=== PATIENT | female | born 1945 | race Caucasian/White ===

== ENCOUNTER 2018-01-17 13:21 | Outpatient (CLI) | payer MEDICARE | END 2018-01-17 13:22 | disposition home or self-care (01) | LOC: BICMAMMO 13:21 | PROVIDERS: ATTEND Family Medicine | DX: Z12.31 Encounter for screening mammogram for malignant neoplasm of breast (principal) | CPT/HCPCS: 77063; 77067 ==

== ENCOUNTER 2019-02-07 10:01 | Outpatient (CLI) | payer MEDICARE ==
--- NOTE | 2019-02-07 12:21 | BD ---
DEXA BONE DENSITY STUDY: Date: 02/07/19 HISTORY: Postmenopausal. 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 POS: TPC
== END 2019-02-07 10:02 | disposition home or self-care (01) ==
LOC: BICMAMMO 10:01
PROVIDERS: ATTEND Family Medicine
DX: Z13.820 Encounter for screening for osteoporosis (principal); M85.89 Other specified disorders of bone density and structure, multiple sites; Z78.0 Asymptomatic menopausal state
CPT/HCPCS: 77080

== ENCOUNTER 2023-01-05 10:06 | Outpatient (CLI) | payer MEDICARE | END 2023-01-05 10:07 | disposition home or self-care (01) | LOC: BICMRI 10:06 | PROVIDERS: ATTEND Orthopaedic Surgery | DX: M23.306 Other meniscus derangements, unspecified meniscus, right knee (principal); S83.241A Other tear of medial meniscus, current injury, right knee, initial encounter; M22.2X1 Patellofemoral disorders, right knee; M71.21 Synovial cyst of popliteal space [Baker], right knee ==

== ENCOUNTER 2024-07-09 10:30 | Outpatient (CLI) | payer MEDICARE | END 2024-07-09 10:31 | disposition home or self-care (01) | LOC: SCSMRI 10:30 | PROVIDERS: ATTEND Orthopaedic Surgery | DX: M75.111 Incomplete rotator cuff tear or rupture of right shoulder, not specified as traumatic (principal); M19.011 Primary osteoarthritis, right shoulder; M75.101 Unspecified rotator cuff tear or rupture of right shoulder, not specified as traumatic; M25.411 Effusion, right shoulder ==

== ENCOUNTER 2024-08-03 06:52 | Day surgery (SDC) | payer MEDICARE ==
[2024-07-31 09:35] VITALS: BMI 27.9
[2024-08-03] MEDS ORDERED: CEFAZOLIN 2 GM VIAL ONE (07:40)
[2024-08-03] MEDS ORDERED: Vancomycin 1 GM/200 ML (FROZEN) BAG ONE (07:40)
[2024-08-03] MEDS ORDERED: Ropivacaine 0.2% HCl/PF 20 ML ONE (08:11)
[2024-08-03] MEDS ORDERED: Midazolam HCl 2 mg/2 ml Vial ONE (08:11)
[2024-08-03] MEDS ORDERED: fentaNYL 50 mcg/mL 1 mL Vial ONE (08:11)
[2024-08-03] MEDS ORDERED: Ropivacaine 0.5% HCl/PF (150 MG/30 ML VIAL) ONE (08:11)
[2024-08-03] MEDS ORDERED: Phenylephrine 40 MG/NS 250 ML 250 ML ONE (08:27)
[2024-08-03] MEDS ORDERED: Lidocaine 1% PF 5 ML VIAL ONE (08:28)
[2024-08-03] MEDS ORDERED: Ondansetron PF 4 MG/2 ML Vial ONE (08:28)
[2024-08-03] MEDS ORDERED: Dexamethasone 20 MG/5 ML VIAL ONE (08:28)
[2024-08-03] MEDS ORDERED: fentaNYL PF 100 MCG/2 ML SYRINGE ONE (08:28)
[2024-08-03] MEDS ORDERED: PROPOFOL 20 ML ONE (08:28)
[2024-08-03] MEDS ORDERED: Rocuronium Bromide 10 MG/ML (10ML VIAL) ONE (08:28)
[2024-08-03] MEDS ORDERED: Glycopyrrolate 0.2 MG/ML 5 ML SYRINGE ONE (09:09)
[2024-08-03] MEDS ORDERED: Promethazine HCl 25 MG/ML VIAL IM PRN ×2 (09:30→11:00)
[2024-08-03] MEDS ORDERED: Ropivacaine 0.2% 550 ML 550 ML NERVE BLCK SCH (09:30)
[2024-08-03] MEDS ORDERED: traMADol HCl 50 MG TAB PO PRN ×2 (09:30)
[2024-08-03] MEDS ORDERED: Zolpidem Tartrate 5 MG TAB PO PRN (09:30)
[2024-08-03] MEDS ORDERED: HYDROcodone/Acetaminophen 10/325 mg Tablet PO PRN ×2 (09:30)
[2024-08-03] MEDS ORDERED: Ondansetron PF 4 MG/2 ML Vial IVP PRN (09:30)
[2024-08-03] MEDS ORDERED: SUGAMMADEX SODIUM 200 MG/2 ML VIAL ONE (10:19)
[2024-08-03] MEDS ORDERED: Ondansetron HCl/PF 4 MG/2 ML Vial IVP PRN (11:00)
== END 2024-08-03 13:29 | disposition home or self-care (01) ==
LOC: SDC 06:52
PROVIDERS: ATTEND Orthopaedic Surgery
PROC: 0LS30ZZ Reposition Right Upper Arm Tendon, Open Approach (ICD-10-PCS; principal; 2024-08-03)
DX: M75.111 Incomplete rotator cuff tear or rupture of right shoulder, not specified as traumatic (principal); S46.101A Unspecified injury of muscle, fascia and tendon of long head of biceps, right arm, initial encounter; M17.0 Bilateral primary osteoarthritis of knee; M75.41 Impingement syndrome of right shoulder; M25.011 Hemarthrosis, right shoulder; I10 Essential (primary) hypertension; E78.5 Hyperlipidemia, unspecified; Z98.890 Other specified postprocedural states; Z79.899 Other long term (current) drug therapy; X58.XXXA Exposure to other specified factors, initial encounter
CPT/HCPCS: 23420; 64416; 87070; 87116; 87205; 87206; A4306; A6223; C1713 ×2; J1100; J2405; J2704; J2795 ×3; J3010; J3370; J2250